=== PATIENT | female | born 1970 | race Hispanic/Latino ===

== ENCOUNTER 2024-03-05 12:10 | Emergency (ER) | payer SELFPAY ==
[~2024-03-05] VITALS: Ht 157.5 cm; Wt 113.4 kg
--- NOTE | 2024-03-05 12:33 | ERN ---
General Chief Complaint: Sore Throat Stated Complaint: SORE THROAT, COUGH, CONGESTION Time Seen by MD: 12:13 History of Present Illness Initial Comments 53-year-old female presents to the ED for evaluation of cough onset 2 weeks ago. Patient reports nasal congestion, jaw pain and sore throat that began 4 days ago. Patient reports symptoms have been worsening and has been having trouble speaking. Allergies: Coded Allergies: Penicillins (Unverified Allergy, Unknown, ANAPHYLAXIS, 03/05/24) Past Medical History Past Medical History: Anemia, Diabetes-Type II, Hypertension, Kidney Stone Past Surgical History: Surgical History Other: LITHOTRIPSY Female( History) LMP: Jan 29, 2024 ROS Dictation Constitutional: Negative for fever,chills, and weight loss Eyes: Negative for injury, pain,redness, and discharge ENT: Positive for nasal congestion, sore throat Negative for injury or swelling Cardiovascular: Negative for chest pain, palpitations, and edema Respiratory: Positive for cough, Negative for shortness of breath and wheezing, Abdomen/GI: Negative for abdominal pain, nausea, vomiting, diarrhea, and c onstipation Back: Negative for injury and pain : Negative for injury, bleeding and discharge MS/Extremity: Negative for injury and deformity Skin: Negative for rash, and discoloration Neuro: Negative for headache, weakness, numbness, tingling, and seizure Psych: Negative for suicide ideation, homicidal ideation, and hallucinations Physical Exam Physical Exam Dictation General: awake, alert, NAD Head/Face: Normocephalic, atraumatic Eyes: PERRL, EOMI, vision at baseline ENT: oral cavity clear, TMs clear, mild pharyngeal erythema Neck: Trachea midline, supple, no nuchal rigidity Cardiovascular: RRR, normal S1/S2, No MRGs, no JVD Respiratory: CTAB, no respiratory distress, No rales or wheezes Abdomen: Soft, non-tender, non-distended, normal bowel sounds, no guarding or rebound. Skin: Warm, dry, normal turgor, no rash MS/Extremity: Pulses equal, no cyanosis, neurovascular intact, FROM Neuro: COAx4, GCS 15, strength 5/5, CN 2-12 intact, normal cerebellar exam, normal gait, Psych: Normal behavior, mood, and affect normal Results Laboratory and Microbiology Lab and Micro Result Laboratory Tests Test 12/16/24 12:32 Influenza Type A Antigen Negative For Type A Influenza Type B Antigen Negative For Type B SARS-CoV-2, RNA, NAAT NEGATIVE SARS CoV-2 Group A Streptococcus Rapid negative (NEGATIVE) Labs Reviewed?: Yes MDM MDM: Differential diagnosis: Cough, URI, pharyngitis, viral syndrome Previous outside records reviewed: Old ER visits. Need for hospitalization: Patient does not meet criteria for hospitalization. Need for emergency major/minor surgery: No Patient's prior external medical records from other ER visits were reviewed by me as indicated. Prior testing and results from previous visits were reviewed. Prior tests were taken into account with medical decision making and resource utilization, independent historian/historians were used to obtain complete medical history. I independently interpreted the test that were performed, results were reviewed by me and considered findings on radiology if ordered. Medical management and examination interpretation discussions were had by me with other qualified healthcare professionals as indicated for the patient's care. ED Course Orders Procedure Category Date Status Time Influenza Type A & B, LAB 03/05/24 Complete Rapid 12:25 Covid Rna Naat LAB 03/05/24 Complete 12:25 Rapid (Group A Strep) LAB 03/05/24 Complete 12:25 Chest 1vw RAD 03/05/24 Resulted 12:25 Acetaminophen-Codeine PHA 03/05/24 Complete Elixer (Tylenol-Co 12:25 Current Medications Medications (Trade) Dose Ordered Sig/Carlene Route PRN Reason Start Time Stop Time Status Last Admin Dose Admin Acetaminophen/ Codeine Phosphate (TYLenol-coDEINE (120/12MG 5ML) ELIXIR) 10 ml ONCE STAT PO 03/05/24 12:25 03/05/24 12:27 DC 03/05/24 12:41 Vital Signs Date Time Temp Pulse Resp B/P (MAP) Pulse Ox O2 Delivery O2 Flow Rate FiO2 03/05/24 12:12 98.6 87 16 186/93 94 Room Air 0 DX & DISP Disposition: Discharge Departure Impression: Primary Impression: URI (upper respiratory infection) Additional Impression: Pharyngitis Condition: Stable Scripts Prednisone (Prednisone) 5 Mg Tablet 1 TAB PO BID for 7 Days, #14 TAB 0 Refills Prov: JONI DOBSON MD 03/05/24 Azithromycin (Azithromycin) 500 Mg Tablet 1 TAB PO DAILY for 5 Days, #5 TAB 0 Refills Prov: JONI DOBSON MD 03/05/24 Additional Instructions: FOLLOW-UP WITH PRIMARY CARE PROVIDER IN 1 TO 2 DAYS. TAKE MEDICATIONS DIRECTED HERE IN THE EMERGENCY ROOM. OKAY TO CONTINUE HOME MEDICATIONS UNLESS OTHERWISE DISCUSSED DURING YOUR VISIT IN THE EMERGENCY ROOM TODAY. RETURN TO YOUR NEAREST EMERGENCY ROOM IF SYMPTOMS WORSEN OR IF THERE IS NO IMPROVEMENT. CALL 911 IF YOU NEED IMMEDIATE ASSISTANCE. TAKE TYLENOL [id number] NEEDED AND IF NO CONTRAINDICATIONS ARE PRESENT. INCREASE ORAL HYDRATION. A WOUND CULTURE OR URINE CULTURE WAS ORDERED HERE IN THE EMERGENCY ROOM DEPARTMENT PLEASE FOLLOW-UP WITH PRIMARY CARE PROVIDER AND ADVISE THEM TO GET REPEAT PORTS FROM OUR FACILITY. IF YOU HAD ANY MEHUL WRAP/SPLINTS THAT WERE APPLIED HERE, PLEASE DO NOT REMOVE THEM UNTIL YOU SEE YOUR PRIMARY CARE OR SPECIALTY. Referrals: Referrals: KONG TURNER MD Time of Disposition: 13:16 I have reviewed, & agreed with my scribe's, documentation. (Entered by Penelope Land, acting as a scribe for Dr. Dobson) I personally scribed for JONI DOBSON MD (ALICE) on 03/05/24 at 12:33. Electronically submitted by Penelope Land ([email or web address]). JONI DOBSON MD Mar 05, 2024 12:33
[2024-03-05] MEDS: acetaMINOPHEN/coDEINE 120/12MG 5ML PO STA (12:41)
[2024-03-05 13:00] LABS: RAPID GROUP A STREP negative (NEGATIVE)
[2024-03-05 13:04] LABS: SARS-CoV-2, RNA, NAAT NEGATIVE SARS CoV-2 (NEGATIVE)
--- NOTE | 2024-03-05 13:06 | HMCIMG ---
CHEST 1VW HISTORY: Cough COMPARISON: None FINDINGS: A frontal projection of the chest was obtained. Prominent interstitial markings are seen with possible superimposed infiltrates. The heart is borderline enlarged. Mild degenerative changes are seen. No evidence of aortic calcification is seen. IMPRESSION: 1. Prominent interstitial markings are seen with possible superimposed infiltrates.
[2024-03-05 13:10] LABS: INFLUENZA TYPE A Negative For Type A (NEGATIVE); INFLUENZA TYPE B Negative For Type B (NEGATIVE)
[2024-03-05] MEDS ORDERED: AZIT500T4 PO (13:18)
[2024-03-05] MEDS ORDERED: PRED5TAB PO (13:18)
[2024-03-05 14:02] VITALS: BP 161/88; PULSE 88; RESP 16; TEMP 98.6; O2SAT 98
== END 2024-03-05 14:07 | disposition home or self-care (01) ==
LOC: EDH 12:10
DX: J06.9 Acute upper respiratory infection, unspecified (principal); J02.9 Acute pharyngitis, unspecified; E11.9 Type 2 diabetes mellitus without complications; I10 Essential (primary) hypertension; Z88.0 Allergy status to penicillin; Z20.822 Contact with and (suspected) exposure to COVID-19
CPT/HCPCS: 71045; 87635; 87804; 87880; 99284